=== PATIENT | male | born 1975 | race Caucasian/White ===

== ENCOUNTER 2022-12-08 13:32 | Emergency (ER) | payer OTHER, SELFPAY ==
[2022-12-08 13:51] VITALS: BP 130/81; PULSE 83; RESP 18; TEMP 36.7; O2SAT 97; BMI 41.5
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
[2022-12-08 15:26] LABS: Basophils Percent Auto 0.5 % (0.2-2.0); Eosinophils Absolute Auto 0.3 10^3/uL (0.0-0.7); Eosinophils Percent Auto 3.8 % (0.9-7.0); Hematocrit 44.5 % (42.0-54.0); Hemoglobin 15.2 g/dL (14.0-18.0); Immature Granulocytes Abs Auto 0.06 10^3/uL (0.00-0.03); Immature Granulocytes Pct Auto 0.8 % (0.0-0.5); Mean Corpuscular HGB Conc 34.2 g/dL (29.9-35.2); Mean Corpuscular Hemoglobin 28.8 pg (25.9-34.0); Mean Corpuscular Volume 84.3 fL (80.0-94.0); Mean Platelet Volume 8.8 fL (9.5-13.5); Monocytes Absolute Auto 0.6 10^3/uL (0.3-0.8); Monocytes Percent Auto 7.1 % (1.7-12.0); Neutrophils Absolute Auto 4.8 10^3/uL (1.4-6.5); Neutrophils Percent Auto 61.8 % (43.0-75.0); Platelet Count 242 10^3/uL (150-450); Red Blood Count 5.28 10^6/uL (4.70-6.10); Red Cell Distribution Width 12.5 % (11.0-15.0); White Blood Count 7.7 10^3/uL (4.0-11.0)
[2022-12-08] MEDS: 0.9 % SODIUM CHLORIDE 1,000 ML 1000 ML IV (15:29)
[2022-12-08] MEDS: ONDANSETRON PF 4 MG/2 ML VIAL IV (15:30)
[2022-12-08] MEDS: MORPHINE SULFATE 4 MG/ML VIAL IV (15:30)
[2022-12-08] MEDS: HYOSCYAMINE SULFATE 0.125 MG TAB.SUBL SL (15:30)
[2022-12-08 15:33] LABS: Bilirubin Urine NEGATIVE (NEGATIVE); Blood Urine NEGATIVE (NEGATIVE); Clarity Urine CLEAR (CLEAR); Color Urine YELLOW (YELLOW); Glucose Urine UA NEGATIVE (NEGATIVE); Ketones Urine NEGATIVE (NEGATIVE); Leukocyte Esterase Urine NEGATIVE (NEGATIVE); Nitrite Urine NEGATIVE (NEGATIVE); Protein Urine NEGATIVE (NEG/TRACE); Specific Gravity Urine 1.025 (1.005-1.025); Urobilinogen Urine 0.2 EU/dL (0.2-1.0); pH Urine 5.5 (5.0-9.0)
[2022-12-08 15:37] LABS: Urine Microscopic Indicated NO
[2022-12-08 15:39] LABS: INR 0.95; Prothrombin Time 10.1 sec (9.0-11.6)
[2022-12-08 15:45] LABS: Lactate/Lactic Acid 1.3 mmol/L (0.4-2.0)
[2022-12-08 15:51] LABS: Alanine Aminotransferase 48 U/L (16-63); Albumin Globulin Ratio 1.2; Albumin Level 4.1 g/dL (3.4-5.0); Alkaline Phosphatase 82 U/L (46-116); Anion Gap 12.7; Aspartate Amino Transferase 41 U/L (15-37); BUN Creatinine Ratio 12.8; Bilirubin Total 0.6 mg/dL (0.2-1.0); Calcium 8.9 mg/dL (8.5-10.1); Carbon Dioxide 27.3 mmol/L (21.0-32.0); Chloride 105 mmol/L (98-107); Estimated GFR (African America >60 (>=60); Estimated GFR (Non-African Ame >60 (>=60); Globulin 3.5 g/dL; Glucose 116 mg/dL (74-106); Sodium 141 mmol/L (136-145); Total Protein 7.6 g/dL (6.4-8.2)
[2022-12-08] MEDS: KETOROLAC TROMETHAMINE 60 MG/2 ML VIAL IM (17:36)
== END 2022-12-08 17:38 | disposition home or self-care (01) ==
PROVIDERS: Physician Assistant; Emergency Provider Emergency Medicine Emergency Medical Services; PCP Family Medicine
DX: R10.9 Unspecified abdominal pain (principal)
CPT/HCPCS: 36415; 74177; 80053; 81003; 83605; 83690; 85025; 85610; 96372; 96374; 96375; 99285; Q9967

== ENCOUNTER 2023-08-20 12:57 | Outpatient (OUT) | payer OTHER, SELFPAY ==
--- NOTE | 2023-08-20 13:02 | US_ITS ---
[address] [address] Patient Name: BORIS LIM MRN: [id number] date: 1975 Sex: M Assigned Patient Location: US Current Patient Location: Accession/Order Number: [id number] Exam Date: 08/20/2023 13:06 Report Date: 08/20/2023 14:59 At the request of: JENA LEPE Procedure: US scrotum EXAMINATION: US scrotum HISTORY: Pain In Right Testicle N50.811 COMPARISON: No relevant comparison available. TECHNIQUE: High-resolution sonographic imaging of the scrotum and contents was performed. FINDINGS: The right testicle is normal in size, contour and homogeneous echotexture measuring 4.1 x 2.3 x 3.7 cm. Normal color and Doppler flow. The right epididymis is normal. No right hydrocele. Moderate right varicocele. The left testicle is normal in size, contour and homogeneous echotexture measuring 4.1 x 2.1 x 2.9 cm. Normal color and Doppler flow. The left epididymis is normal. Small left hydrocele. No left varicocele US/US scrotum IMPRESSION: Moderate right varicocele Small left hydrocele Electronically authenticated by: SASHA GAINES Date: 08/20/2023 14:59
== END 2023-08-20 12:58 | disposition home or self-care (01) ==
LOC: US 12:57
PROVIDERS: PCP Family Medicine; Visit Provider Physician Assistant
DX: N50.811 Right testicular pain (principal); I86.1 Scrotal varices; N43.3 Hydrocele, unspecified
CPT/HCPCS: 76870

== ENCOUNTER 2024-04-10 11:10 | Emergency (ER) | payer OTHER, SELFPAY ==
[2024-04-10 11:13] VITALS: BP 134/88; PULSE 90; TEMP 36.6; O2SAT 98; BMI 38.3
--- NOTE | 2024-04-10 11:21 | ED.NAVMDI1 ---
HPI - Nausea/Vomiting/Diarrhea General Chief complaint: Nausea/Vomiting/Diarrhea Stated complaint: vomiting Time Seen by Provider: 04/10/24 11:19 Source: patient Mode of arrival: walk-in Limitations: no limitations History of Present Illness HPI Narrative: 48-year-old male presents to the emergency department for a chief complaint of nausea and vomiting which started at 1:00 this morning. No fever. His recently had similar symptoms. Related Data Previous Rx's ?Medication ?Instructions ?Recorded dicyclomine 20 mg tablet 20 mg PO QID PRN abdominal pain 12/08/22 #12 tabs docusate sodium 100 mg capsule 100 mg PO BID #10 caps 12/08/22 (Colace) ondansetron 4 mg disintegrating 4 mg PO Q6H PRN nausea and 12/08/22 tablet vomiting #12 tabs tramadol 50 mg tablet 50 mg PO Q4H PRN pain #12 tabs 12/08/22 ondansetron 4 mg disintegrating 4 mg PO Q6H PRN nausea and 04/10/24 tablet vomiting #20 tabs Allergies Allergy/AdvReac Type Severity Reaction Status Date / Time No Known Drug Allergies Allergy Verified 04/10/24 11:16 Review of Systems ROS Narrative A ten point review of systems is negative except as noted above. PFSH PFSH Social History Smoking status: Never smoker Little interest or pleasure in doing things: not at all Feeling down, depressed, or hopeless: not at all Exam Narrative Exam Narrative: Nurses note and vital signs reviewed and patient is not hypoxic. General: The patient appears in no apparent distress. Patient is resting on cart. Skin: Warm, dry, no pallor noted. There is no rash noted. Head: Normocephalic, atraumatic Eye: Normal conjunctiva, no drainage, EOMI. PERRL Ears, Nose, Mouth, and Throat: oral mucosa is moist. Nares patent. Cardiovascular: Regular Rate and Rhythm Respiratory: Patient is in no distress, no accessory muscle use, lungs are clear to auscultation, no wheezing, rales or rhonchi Back: non-tender GI: Soft and nondistended. No rebound or guarding or palpable tenderness Musculoskeletal: The patient has no evidence of calf tenderness, no pitting edema, symmetrical pulses noted bilaterally Neurological: A&O, normal speech Psychiatric: Cooperative Constitutional Vital Signs, click to edit/add: Last Vital Signs Temp 98 F 04/10/24 11:13 Pulse 90 04/10/24 11:13 Resp 20 04/10/24 11:13 BP 134/88 04/10/24 11:13 Pulse Ox 98 04/10/24 11:13 O2 Del Method Room Air 04/10/24 11:13 Course Vital Signs Vital signs: Vital Signs Temperature 98 F 04/10/24 11:13 Pulse Rate 90 04/10/24 11:13 Respiratory Rate 20 04/10/24 11:13 Blood Pressure 134/88 04/10/24 11:13 Pulse Oximetry 98 04/10/24 11:13 Oxygen Delivery Method Room Air 04/10/24 11:13 Temperature 98 F 04/10/24 11:13 Pulse Rate 90 04/10/24 11:13 Respiratory Rate 20 04/10/24 11:13 Blood Pressure 134/88 04/10/24 11:13 Pulse Oximetry 98 04/10/24 11:13 Oxygen Delivery Method Room Air 04/10/24 11:13 MDM - Nausea/Vomiting/Diarrhea MDM Narrative Medical decision making narrative: The patient's laboratory analysis is nonspecific. He seems to be feeling improved with IV fluids and IV Zofran and is being discharged home. Treatment diagnosis and follow-up were discussed with the patient and his . Differential Diagnosis Differential diagnosis: Likely food poisoning, gastroenteritis and dehydration Lab Data Attestation: I reviewed the patient's lab results. Labs: Lab Results 04/10/24 Range/Units 11:23 WBC 12.1 H (4.0-11.0) 10^3/uL RBC 5.98 (4.70-6.10) 10^6/uL Hgb 17.3 (14.0-18.0) g/dL Hct 50.6 (42.0-54.0) % MCV 84.6 (80.0-94.0) fL MCH 28.9 (25.9-34.0) pg MCHC 34.2 (29.9-35.2) g/dL RDW 12.6 (11.0-15.0) % Plt Count 251 (150-450) 10^3/uL MPV 8.5 L (9.5-13.5) fL Seg Neuts % (Manual) 89.0 H (43.0-75.0) Band Neutrophils % 2.0 (0-5) % Lymphocytes % (Manual) 4.0 L (20.5-60.0) % Monocytes % (Manual) 4.0 (1.7-12.0) % Eosinophils % (Manual) 0.0 L (0.9-7.0) % Basophils % (Manual) 1.0 (0.2-2.0) % Neutrophils # (Manual) 10.76 H (1.4-6.5) 10^3/uL Band Neutrophils # 0.2 (0.0-0.3) 10^3/uL Lymphocytes # (Manual) 0.48 L (1.20-3.80) 10^3/uL Monocytes # (Manual) 0.48 (0.30-0.80) 10^3/uL Eosinophils # (Manual) 0.00 (0.00-0.70) 10^3/uL Basophils # (Manual) 0.12 H (0.00-0.10) 10^3/uL Sodium 138 (136-145) mmol/L Potassium 4.0 (3.5-5.1) mmol/L Chloride 103 (98-107) mmol/L Carbon Dioxide 26.5 (21.0-32.0) mmol/L Anion Gap 12.5 BUN 14.0 (7.0-18.0) mg/dL Creatinine 1.31 H (0.70-1.30) mg/dL Est GFR ( Amer) >60 (>=60 mL/min/1.73m^2) Est GFR (Non-Af Amer) 59 L (>=60 mL/min/1.73m^2) BUN/Creatinine Ratio 10.7 Glucose 117 H (74-106) mg/dL Calcium 9.4 (8.5-10.1) mg/dL Discharge Plan Discharge Chief Complaint: Nausea/Vomiting/Diarrhea Clinical Impression: Nausea and vomiting Patient Disposition: Home, Self-Care Time of Disposition Decision: 12:16 Condition: Good Mode of Transportation: Private Vehicle Prescriptions / Home Meds: New ondansetron 4 mg tablet,disintegrating 4 mg PO Q6H PRN (Reason: nausea and vomiting) Qty: 20 0RF No Action dicyclomine 20 mg tablet 20 mg PO QID PRN (Reason: abdominal pain) Qty: 12 0RF docusate sodium [Colace] 100 mg capsule 100 mg PO BID Qty: 10 0RF tramadol 50 mg tablet 50 mg PO Q4H PRN (Reason: pain) Qty: 12 0RF ondansetron 4 mg tablet,disintegrating 4 mg PO Q6H PRN (Reason: nausea and vomiting) Qty: 12 0RF Print Language: Belarusian Instructions: Acute Nausea and Vomiting (ED) Referrals: Xin Rodriguez MD [Primary Care Provider] - 1 week
[2024-04-10 11:31] LABS: Hematocrit 50.6 % (42.0-54.0); Hemoglobin 17.3 g/dL (14.0-18.0); Mean Corpuscular HGB Conc 34.2 g/dL (29.9-35.2); Mean Corpuscular Hemoglobin 28.9 pg (25.9-34.0); Mean Corpuscular Volume 84.6 fL (80.0-94.0); Mean Platelet Volume 8.5 fL (9.5-13.5); Platelet Count 251 10^3/uL (150-450); Red Blood Count 5.98 10^6/uL (4.70-6.10); Red Cell Distribution Width 12.6 % (11.0-15.0); White Blood Count 12.1 10^3/uL (4.0-11.0)
[2024-04-10] MEDS: 0.9 % SODIUM CHLORIDE 1,000 ML 1000 ML IV (11:31)
[2024-04-10] MEDS: ONDANSETRON PF 4 MG/2 ML VIAL IV ×2 (11:32→12:13)
[2024-04-10 11:38] LABS: Anion Gap 12.5; BUN Creatinine Ratio 10.7; Calcium 9.4 mg/dL (8.5-10.1); Carbon Dioxide 26.5 mmol/L (21.0-32.0); Chloride 103 mmol/L (98-107); Estimated GFR (African America >60 (>=60 mL/min/1.73m^2); Estimated GFR (Non-African Ame 59 (>=60 mL/min/1.73m^2); Glucose 117 mg/dL (74-106); Sodium 138 mmol/L (136-145)
[2024-04-10 11:46] LABS: Band Neutrophils Absolute 0.2 10^3/uL (0.0-0.3); Basophils Abs Manual 0.12 10^3/uL (0.00-0.10); Lymphocytes Absolute Manual 0.48 10^3/uL (1.20-3.80); Monocytes Absolute Manual 0.48 10^3/uL (0.30-0.80); Segmented Neut Absolute Manual 10.76 10^3/uL (1.4-6.5)
== END 2024-04-10 12:30 | disposition home or self-care (01) ==
PROVIDERS: Emergency Provider Emergency Medicine; PCP Family Medicine
DX: R11.2 Nausea with vomiting, unspecified (principal)
CPT/HCPCS: 36415; 80048; 85007; 85027; 96361; 96374; 96376; 99284; J2405